=== PATIENT | male | born 1985 | race Caucasian/White ===

== ENCOUNTER 2019-11-07 10:04 | Emergency (ER) | payer OTHER ==
[~2019-11-07] VITALS: Ht 188 cm; Wt 63.6 kg
[2019-11-07 10:29] VITALS: BP 118/70
[2019-11-07] MEDS ORDERED: SULFAMETHOX/TRIMETH DS 800-160 MG/TABLET PO ONE (11:00)
[2019-11-07] MEDS ORDERED: CEPHALEXIN MONOHYDRATE 500 MG CAPSULE PO ONE (11:00)
[2019-11-07] MEDS ORDERED: CefTRIAXone SODIUM 1 GM/VIAL IM ONE (11:00)
[2019-11-07] MEDS ORDERED: LIDOCAINE/PF 1% 2 ML VIAL IM ONE (11:00)
== END 2019-11-07 12:19 | disposition home or self-care (01) ==
LOC: EMS 10:11
DX: I89.1 Lymphangitis (principal); F12.90 Cannabis use, unspecified, uncomplicated
CPT/HCPCS: 96372; 99283; J0696; J3490